=== PATIENT | male | born 1950 | race Caucasian/White ===

== ENCOUNTER 2016-11-18 17:34 | Emergency (ER) | payer MEDICARE, BC ==
[2016-11-18 18:05] LABS: Urine Bilirubin Negative (NEGATIVE); Urine Ketone Negative (NEGATIVE); Urine Nitrite Negative (NEGATIVE); Urine Protein Negative (NEGATIVE); Urine Specific Gravity <=1.005 SP.GR. (1.005-1.030); Urine Urobilinogen Normal (NORMAL)
--- NOTE | 2016-11-18 18:05 | ERNOTE ---
ER Male HPI Date of Service: 11/18/16 Stated Complaint: RETENSION ER Male: urinary retention Time Seen by Provider: 11/18/16 17:54 Source: patient Exam Limitations: no limitations Immunizations: IMMUNIZATION HX Immunizations Up to Date Yes History of Influenza Vaccine Yes Hx Pneumococcal Vaccination No Allergies/Adverse Reactions: Allergies No Known Drug Allergies Allergy (Verified 11/18/16 17:46) Home Medications: HOME MEDICATIONS Aspirin [Aspir 81] 81 mg PO DAILY 03/26/12 [Last Taken Unknown] Fenofibrate,Micronized [Fenofibrate] 200 mg PO DAILY 03/26/12 [Last Taken Unknown] Losartan/Hydrochlorothiazide [Hyzaar 100-25 Tablet] 1 each PO DAILY 03/26/12 [ Last Taken Unknown] Mu-Vits-Min Th/Lycopene/Lutein [Centrum Silver Tablet] 1 each PO DAILY 03/26/12 [Last Taken Unknown] [place]-3/Dha/Epa/Fish Oil [Fish Oil 1,000 mg Softgel] 1 each PO DAILY 03/26/12 [ Last Taken Unknown] Saw [place] 80 mg PO DAILY 03/26/12 [Last Taken Unknown] Cefuroxime Axetil [Ceftin] 250 mg PO Q12H #6 tab 11/18/16 [Last Taken Unknown] Tamsulosin HCl [Flomax] 0.4 mg PO DAILY 11/18/16 [Last Taken Unknown] - History of Present Illness Narrative: 66 year old patient presents to the ER for bladder distention. patient states he has an enlarged prostate that he has had bladder issues with and today he was unable to void after his urologist apt. patient states he has access to self cath supplies at home but was unable to self cath day due to resistance. Date (Duration): 11/18/16 Timing: Present: constant Quality: Present: cramping, fullness Onset Location: Present: suprapubic Radiation: Present: none Activities at Onset: Present: none Prior Abdominal Problems: Present: none Modifying Factors - (Worsens): Present: palpation Associated Symptoms: Present: denies symptoms Prior Treatment: Present: treated by physician Review of Systems - Review of Systems Constitutional: Present: no symptoms reported EYE: Present: no symptoms reported ENT: Present: no symptoms reported Respiratory: Present: no symptoms reported Cardiology: Present: no symptoms reported Gastrointestinal/Abdominal: Present: no symptoms reported Genitourinary: Present: See HPI Musculoskeletal: Present: no symptoms reported Skin: Present: no symptoms reported Neurological: Present: no symptoms reported Endocrine: Present: no symptoms reported Hematologic/Lymphatic: Present: no symptoms reported Psych: Present: no symptoms reported All Other Systems: All systems neg except as marked - Patient's Past Medical History Patient History - Medical: No pertinent hx Patient History - Cardiac/Respiratory: No pertinent hx Patient History - Cancer: Colon, Surgical Treatment, Other Patient History - Surgical Procedures: Cholecystectomy, Hernia Repair Patient History - Other: None - Social History Living Situations: home Abuse History: No History of abuse Psych History: No pertinent hx Smoking Status: Former smoker Alcohol Use: none Drug Use: none - Immunizations Immunizations Up to Date: Yes Hx Pneumococcal Vaccination: No History of Influenza Vaccine: Yes Physical Exam - Physical Exam General Appearance: Present: wd/wn, alert, mild distress Head Exam: Present: normal inspection, no evidence of injury Eye Exam: Normal inspection: bilateral Ears, Nose, Throat: Present: normal ENT inspection, normal pharynx Neck: Present: normal inspection, nontender Respiratory: Present: no respiratory distress, normal breath sounds, no accessory muscle use, chest nontender, lungs clear Cardiovascular/Chest: Present: regular rate, rhythm, no murmur, normal peripheral pulses Gastrointestinal/Abdominal: Present: normal bowel sounds, soft, distended - around bladder area Back Exam: Present: normal inspection, normal range of motion, no CVA tenderness , no vertebral tenderness Extremity Exam: Present: normal inspection, non-tender, normal range of motion, no edema Neurological Exam: Present: alert, oriented, normal mood/affect, no motor/ sensory deficits Skin Exam: Present: normal color, warm/dry Lymphatic Exam: Present: no adenopathy ED Progress - Results and Orders Patient's Lab Results:: I have reviewed the patient's lab results. - Vital Signs Patient's Vital Signs:: I have reviewed the patient's vital signs. Vital Signs: Vital Signs 11/18/16 17:38 Temperature 37.3 C Pulse Rate 105 H Respiratory 16 Rate Blood Pressure 179/102 O2 Sat by Pulse 97 Oximetry - Progress/Reassessment Chief Complaint: Genitourinary Problem Progress:: Improved Plan - Plan Plan: patient cathed and immediately got relief. patient feels better, VSS. patient educated on self straight cath. He is going to folow up with his urologist on monday. Departure Clinical Impression: Urinary retention due to benign prostatic hyperplasia - Departure Disposition: Home Follow Up Needed Condition: Stable Instructions: Clean Intermittent Catheterization, Male Additional Instructions: Continue any previous home medications as directed. Follow up with your urologist on Monday. Return to the emergency room if you're unable to straight cath yourself Referrals: Prasanna Christopher MD [Primary Care Provider] - Prescriptions: Cefuroxime Axetil [Ceftin] 250 mg PO Q12H #6 tab
[2016-11-18 18:08] VITALS: BP 129/70
[2016-11-18 18:49] LABS: Urine Appearance Clear; Urine Bacteria TRACE; Urine Blood 5 /ul (NEGATIVE); Urine Color Yellow; Urine RBC TRACE /hpf (0-5); Urine WBC None Seen /hpf (0-5)
== END 2016-11-18 18:39 | disposition home or self-care (01) ==
LOC: ER 17:34
PROC: 0T9B7ZZ Drainage of Bladder, Via Natural or Artificial Opening (ICD-10-PCS; principal; 2016-11-18)
DX: N40.1 Benign prostatic hyperplasia with lower urinary tract symptoms (principal); R33.8 Other retention of urine; Z85.038 Personal history of other malignant neoplasm of large intestine

== ENCOUNTER → 2017-03-17 | Emergency (ER) | payer MEDICARE, BC ==
[2017-03-17 04:28] VITALS: BP 186/93
--- NOTE | 2017-03-17 04:48 | ERNOTE ---
ER Male HPI Date of Service: 03/17/17 Stated Complaint: urination issures ER Male: urinary retention Time Seen by Provider: 03/17/17 04:35 Source: patient Immunizations: IMMUNIZATION HX Immunizations Up to Date No: unknown History of Influenza Vaccine Yes Hx Pneumococcal Vaccination Yes Allergies/Adverse Reactions: Allergies No Known Drug Allergies Allergy (Verified 11/18/16 17:46) Home Medications: HOME MEDICATIONS Aspirin [Aspir 81] 81 mg PO DAILY 03/26/12 [Last Taken Unknown] Fenofibrate,Micronized [Fenofibrate] 200 mg PO DAILY 03/26/12 [Last Taken Unknown] Losartan/Hydrochlorothiazide [Hyzaar 100-25 Tablet] 1 each PO DAILY 03/26/12 [ Last Taken Unknown] Mu-Vits-Min Th/Lycopene/Lutein [Centrum Silver Tablet] 1 each PO DAILY 03/26/12 [Last Taken Unknown] [place]-3/Dha/Epa/Fish Oil [Fish Oil 1,000 mg Softgel] 1 each PO DAILY 03/26/12 [ Last Taken Unknown] Saw [place] 80 mg PO DAILY 03/26/12 [Last Taken Unknown] Tamsulosin HCl [Flomax] 0.4 mg PO DAILY 11/18/16 [Last Taken Unknown] Ascorbic Acid [Vitamin C] 500 mg PO DAILY 03/17/17 [Last Taken Unknown] Cholecalciferol [Vitamin D] 1,000 unit PO DAILY 03/17/17 [Last Taken Unknown] - History of Present Illness Narrative: This is a 66-year-old male with a history of urinary retention. The most recent was in October. The time before that was March. Comes to the emergency room not having been able to urinate. He says last time he urinated was 10:30. He says that he definitely did not empty his bladder at that time. He knows that he has an enlarged prostate, he sees a urologist, the urologist has been talking to him about needing surgery. The patient has no other symptoms. No fever chills nausea vomiting or any other complaints. Before I see the patient he is actually already had a catheter placed which returned at 1100 mL. The patient says "I feel fine and wanted to go home" Review of Systems - Review of Systems Constitutional: Present: no symptoms reported EYE: Present: no symptoms reported ENT: Present: no symptoms reported Respiratory: Present: no symptoms reported Cardiology: Present: no symptoms reported Gastrointestinal/Abdominal: Present: no symptoms reported Genitourinary: Present: decreased urinary output Musculoskeletal: Present: no symptoms reported Skin: Present: no symptoms reported Neurological: Present: no symptoms reported Endocrine: Present: no symptoms reported Hematologic/Lymphatic: Present: no symptoms reported Psych: Present: no symptoms reported All Other Systems: All systems neg except as marked - Patient's Past Medical History Patient History - Medical: No pertinent hx, Other Patient History - Cardiac/Respiratory: No pertinent hx Patient History - Cancer: Colon, Surgical Treatment, Other Patient History - Surgical Procedures: Cholecystectomy, Hernia Repair Patient History - Other: None - Family History Mother Family History - Medical: Father Family History - Medical: Family History - Cardiac/Respiratory: No pertinent hx Family History - Cancer: Prostate - Social History Living Situations: spouse Abuse History: No History of abuse Psych History: No pertinent hx Smoking Status: Former smoker Have you smoked in the past 12 months: No Do you dip or chew tobacco: No Alcohol Use: none Drug Use: none - Immunizations Immunizations Up to Date: No - unknown Hx Pneumococcal Vaccination: Yes History of Influenza Vaccine: Yes Physical Exam - Physical Exam General Appearance: Present: wd/wn, alert, no apparent distress Head Exam: Present: normal inspection, no evidence of injury Eye Exam: Normal inspection: bilateral, PERRL: bilateral, EOMI: bilateral Ears, Nose, Throat: Present: normal ENT inspection, normal pharynx Neck: Present: normal inspection, nontender Respiratory: Present: no respiratory distress, normal breath sounds, lungs clear Cardiovascular/Chest: Present: regular rate, rhythm, no murmur, normal peripheral pulses Gastrointestinal/Abdominal: Present: normal bowel sounds, nontender, nondistended, soft Male Genitals Exam: Present: normal genitalia Back Exam: Present: normal inspection, no CVA tenderness Extremity Exam: Present: normal inspection, normal range of motion, no edema Neurological Exam: Present: alert, oriented, normal mood/affect, no motor/ sensory deficits Skin Exam: Present: normal color, warm/dry Lymphatic Exam: Present: no adenopathy ED Progress - Vital Signs Patient's Vital Signs:: I have reviewed the patient's vital signs. Vital Signs: Vital Signs 03/17/17 04:20 Temperature 36.8 C Pulse Rate 84 Respiratory 18 Rate Blood Pressure 186/93 O2 Sat by Pulse 98 Oximetry - Progress/Reassessment Chief Complaint: Urinary Tract Problems Progress:: Improved Progress Note-Subjective: 03/17/17 04:47 I have discussed with the patient the fact that he will need to follow up with his urologist on Monday. The patient is very adamant he does not want to have the catheter in until then. I have made aware if he elects to have the catheter removed he will likely have to have it replaced again within the next 24 hours. He is willing to take this chance. He says last time the catheter was placed in October and he went home without any trouble until now. He appears to have decision-making ability. I will honor his request. Departure Clinical Impression: Urinary retention - Departure Disposition: Home self-care Condition: Good Instructions: Acute Urinary Retention, Male Additional Instructions: As we discussed to do a significant amount of urinary retention. This is been relieved by the catheter. You have elected to have the catheter removed. He may end up with urinary retention again. If you develop difficulty urinating again used come back into the ER. Regardless I want you to follow up with your urologist. Call his office on Monday, tell them you were seen in the ER, and asked to be into the schedule. Return to the ER for new concerning symptoms Referrals: Prasanna Christopher MD [Primary Care Provider] -
== END | disposition home or self-care (01) ==
LOC: ER 04:09
PROC: 0T9B70Z Drainage of Bladder with Drainage Device, Via Natural or Artificial Opening (ICD-10-PCS; principal; 2017-03-17)
DX: N40.1 Benign prostatic hyperplasia with lower urinary tract symptoms (principal); R33.8 Other retention of urine; Z85.038 Personal history of other malignant neoplasm of large intestine